=== PATIENT | male | born 1975 | race Caucasian/White ===

== ENCOUNTER → 2017-11-10 | Outpatient (CLI) | payer OTHER | LOC: LAB.R 09:00 | PROVIDERS: ATTEND Internal Medicine | DX: J02.9 Acute pharyngitis, unspecified (principal); M79.1 Myalgia; R61 Generalized hyperhidrosis | CPT/HCPCS: 87070; 87077; 87430 ==

== ENCOUNTER 2018-07-29 17:07 | Outpatient (CLI) | payer OTHER ==
--- NOTE | 2018-07-30 16:57 | MRI Report ---
Reason: R SHOULDER PAIN Procedure Date: 07/29/2018 Accession Number: [id number] / [id number] Procedure: MRI - Shoulder RT W/O CPT Code: FULL RESULT: EXAM: RIGHT SHOULDER MRI WITHOUT CONTRAST. EXAM DATE: 07/29/2018 05:49 PM. CLINICAL HISTORY: Right shoulder pain after injury. Popping and cracking. COMPARISON: None. TECHNIQUE: Multiplanar, multisequence T1-weighted and fluid-sensitive sequences of the shoulder without contrast. Other: None. FINDINGS: Acromioclavicular Region: The acromion is type II. Marrow edema in the distal clavicle is adjacent to the joint space. The joint space itself has capsular edema and hypertrophy. The coracoacromial and coracoclavicular ligaments are intact. Trace fluid is in the subacromial/subdeltoid bursa. Glenohumeral Region: No subluxation. No effusion or loose bodies. The articular cartilage is unremarkable. The glenohumeral ligaments and joint capsule are unremarkable. Bone Marrow: No fractures. No marrow edema outside of the distal clavicle. Labrum: A full-thickness tear of the posterior labrum can be seen on series 401, images 22 through 19. Musculature/Rotator Cuff: The subscapularis, supraspinatus, infraspinatus, and teres minor tendons are intact. No edema or fatty atrophy. Biceps Tendon: The long head of the biceps tendon and biceps kimmy are intact. Other: The subcutaneous tissues are unremarkable. IMPRESSION: 1. Full-thickness tear of the posterior superior labrum. 2. Mild acromioclavicular osteoarthropathy with reactive marrow edema in the distal clavicle. [facility] MUSCULOSKELETAL RADIOLOGY SECTION
== END 2018-07-29 17:08 | disposition home or self-care (01) ==
LOC: DI 17:07
PROVIDERS: ATTEND Internal Medicine
DX: M19.011 Primary osteoarthritis, right shoulder (principal); S43.491A Other sprain of right shoulder joint, initial encounter

== ENCOUNTER 2021-09-01 16:29 | Outpatient (CLI) | payer OTHER | END 2021-09-01 16:30 | disposition home or self-care (01) | LOC: LAB.R 16:29 | PROVIDERS: ATTEND Internal Medicine | DX: Z20.822 Contact with and (suspected) exposure to COVID-19 (principal) ==

== ENCOUNTER 2023-12-30 14:30 | Outpatient (CLI) | payer OTHER ==
--- NOTE | 2023-12-30 16:40 | XRAY Report ---
PROCEDURE: Chest 2V INDICATIONS: BRONCHITIS TECHNIQUE: 2 views of the chest were acquired. COMPARISON: None. FINDINGS: Surgical changes and devices: None. Lungs and pleura: No pleural effusions or pneumothorax. Patchy consolidation involving the right low er lobe. Left lung appears clear. Mediastinum: Mediastinal contours appear normal. Heart size is normal. Bones and chest wall: No suspicious bony lesions. Overlying soft tissues appear unremarkable. IMPRESSION: Right lower lobe consolidation likely representing focal pneumonia. Recommend follow-up chest radiograph 4-6 weeks after treatment to document resolution of findings and /or return to baseline exam. Reviewed by: Roni Hernández MD on 12/30/2023 4:38 PM PDT Approved by: Roni Hernández MD on 12/30/2023 4:38 PM PDT Station ID: [id number]
== END 2023-12-30 14:45 | disposition home or self-care (01) ==
LOC: DI.N 14:30
PROVIDERS: ATTEND Physician Assistant Medical
DX: R91.8 Other nonspecific abnormal finding of lung field (principal)